=== PATIENT | female | born 1970 | race Caucasian/White ===

== ENCOUNTER 2023-09-30 16:22 | Emergency (ER) | payer MEDICAID ==
[~2023-09-30] VITALS: Ht 165.1 cm; Wt 59.0 kg
[2023-09-30 16:39] VITALS: O2SAT 100
[2023-09-30] MEDS ORDERED: MORPHINE SULFATE 4 MG/ML CPJ (NOT FOR IM USE) IV ONE (16:45)
[2023-09-30 17:30] LABS: BASOPHILS % 0.4 % (0.0-2.0); HEMATOCRIT. 32.2 % (36.0-48.0); HEMOGLOBIN. 9.8 g/dL (12.0-16.0); LYMPHOCYTES % 24.1 % (20.0-50.0); MEAN CORPUSCULAR HEMOGLOBIN 19.8 pg (28.0-32.0); MEAN CORPUSCULAR HGB CONC 30.3 g/dL (31.0-37.0); MEAN CORPUSCULAR VOLUME 65.2 fL (81.0-99.0); MEAN PLATELET VOLUME 8.5 fl (7.4-10.4); MONOCYTES % 9.7 % (2.0-8.0); NEUTROPHILS % 64.8 % (40.0-76.0); PLATELET 176 x1000/uL (130-400); RED BLOOD CELL COUNT 4.94 mill/uL (4.2-5.4); RED CELL DISTRIBUTION WIDTH 19.7 % (11.6-14.6)
[2023-09-30 17:38] LABS: ADD RBC MORPHOLOGY YES; DIFFERENTIAL COMMENT 1
[2023-09-30 17:40] LABS: PROTHROMBIN TIME 10.9 sec (9.6-11.0)
[2023-09-30 17:45] LABS: ALANINE AMINOTRANSFERASE 24 IU/L (10-49); ALBUMIN 4.4 g/dL (3.2-4.8); ASPARTATE AMINOTRANSFERASE 31 IU/L (<34); BILIRUBIN TOTAL 0.6 mg/dL (0.1-1.0); CALCIUM 9.7 mg/dL (8.7-10.4); CARBON DIOXIDE 26 mEq/L (21-32); CHLORIDE 103 mEq/L (98-107); CREATININE 0.4 mg/dL (0.6-1.0); GLUCOSE 69 mg/dL (70-105); PROTEIN TOTAL 7.3 g/dL (6.0-8.3); SODIUM 138 mEq/L (136-145); UREA NITROGEN BLOOD 21 mg/dL (9-23)
[2023-09-30 17:54] LABS: ANISOCYTOSIS 1+; HYPOCHROMASIA 2+; MICROCYTOSIS 3+; PLATELET ESTIMATE NORMAL
[2023-09-30] MEDS ORDERED: IBUP-2029 MT (19:51)
[2023-09-30 20:16] VITALS: BP 132/62; PULSE 74; RESP 17; TEMP 98.1
== END 2023-09-30 20:18 | disposition home or self-care (01) ==
LOC: EDBD 16:22 → ER 16:22
DX: D25.9 Leiomyoma of uterus, unspecified (principal); E05.80 Other thyrotoxicosis without thyrotoxic crisis or storm; Z90.49 Acquired absence of other specified parts of digestive tract
CPT/HCPCS: 80053; 83605; 83690; 85025; 85610; 36415; 71045; 74176; 96374; 99285; J2270; Z7610 ×4

== ENCOUNTER 2023-12-25 10:16 | Emergency (ER) | payer SELFPAY ==
[~2023-12-25] VITALS: Ht 160 cm; Wt 55.0 kg
[~2023-12-25 10:16] MED LIST: IBUP-2029 MT
[2023-12-25] MEDS: ALBUTEROL (0.083%) 2.5MG/3ML NEB HHN STA ×2 (11:04→12:50)
[2023-12-25] MEDS: IPRATROPIUM BROMIDE (0.02%) 0.5MG/2.5ML NEB HHN STA ×2 (11:04→12:50)
[2023-12-25 11:10] VITALS: PULSE 80; RESP 15; O2SAT 98
[2023-12-25 11:21] LABS: BASOPHILS % 0.5 % (0.0-2.0); EOSINOPHILS % 3.5 % (0.0-5.0); HEMATOCRIT. 34.1 % (36.0-48.0); HEMOGLOBIN. 10.7 g/dL (12.0-16.0); LYMPHOCYTES % 36.7 % (20.0-50.0); MEAN CORPUSCULAR HEMOGLOBIN 20.5 pg (28.0-32.0); MEAN CORPUSCULAR HGB CONC 31.4 g/dL (31.0-37.0); MEAN CORPUSCULAR VOLUME 65.5 fL (81.0-99.0); MEAN PLATELET VOLUME 8.4 fl (7.4-10.4); MONOCYTES % 18.2 % (2.0-8.0); NEUTROPHILS % 41.1 % (40.0-76.0); PLATELET 173 x1000/uL (130-400); RED BLOOD CELL COUNT 5.21 mill/uL (4.2-5.4); RED CELL DISTRIBUTION WIDTH 18.9 % (11.6-14.6); WHITE BLOOD COUNT 2.5 x1000/uL (4.5-11.0)
[2023-12-25 11:24] LABS: CHLORIDE 108 mEq/L (98-107); POTASSIUM 3.9 mEq/L (3.5-5.1); SODIUM 137 mEq/L (136-145)
[2023-12-25 11:25] LABS: CALCIUM 8.9 mg/dL (8.7-10.4); CARBON DIOXIDE 21 mEq/L (21-32)
[2023-12-25 11:28] LABS: DIFFERENTIAL COMMENT 1
[2023-12-25 11:30] LABS: ADD RBC MORPHOLOGY YES; CREATININE 0.4 mg/dL (0.6-1.0); GLUCOSE 121 mg/dL (70-105); UREA NITROGEN BLOOD 14 mg/dL (9-23)
[2023-12-25 11:31] LABS: TROPONIN I HIGH SENSITIVITY 7 ng/L (3.0-34)
[2023-12-25 11:32] LABS: ALANINE AMINOTRANSFERASE 26 IU/L (10-49); ALBUMIN 4.3 g/dL (3.2-4.8); ASPARTATE AMINOTRANSFERASE 34 IU/L (<34); BILIRUBIN TOTAL 0.4 mg/dL (0.1-1.0); PROTEIN TOTAL 8.1 g/dL (6.0-8.3)
[2023-12-25] MEDS ORDERED: METHYLPREDNISOLONE SOD SUCC 40MG VIAL IV ONE (11:45)
[2023-12-25 12:03] LABS: ANISOCYTOSIS 2+; MICROCYTOSIS 2+; PLATELET ESTIMATE NORMAL
[2023-12-25] MEDS: METHYLPREDNISOLONE SOD SUCC 125MG/2ML (ACT-O-VIAL) IV NR (12:19)
[2023-12-25 12:50] VITALS: PULSE 91; RESP 2; O2SAT 99
[2023-12-25 12:56] VITALS: TEMP 98.4
[2023-12-25] MEDS ORDERED: AZIT250T MT (13:22)
[2023-12-25] MEDS ORDERED: P20 MT (13:22)
[2023-12-25] MEDS ORDERED: ALBU6.7H15 INH (13:22)
[2023-12-25 14:13] VITALS: BP 134/54; PULSE 81; RESP 19
== END 2023-12-25 14:14 | disposition home or self-care (01) ==
LOC: ER 10:16
DX: B34.9 Viral infection, unspecified (principal); D50.9 Iron deficiency anemia, unspecified; I10 Essential (primary) hypertension; E05.90 Thyrotoxicosis, unspecified without thyrotoxic crisis or storm; Z98.890 Other specified postprocedural states
CPT/HCPCS: 80053; 83880; 83605; 85025; 87040; 84484; 36415; 71045; 94640; 93005; 96374; 99285; J2930; Z7610 ×7; J2920

== ENCOUNTER 2024-07-08 14:00 | Emergency (ER) | payer MEDICAID ==
[~2024-07-08] VITALS: Ht 165.1 cm; Wt 58.0 kg
[~2024-07-08 14:00] MED LIST changes: +ALBU6.7H15 INH; -IBUP-2029 MT; +METH-372 MT
[2024-07-08 14:04] VITALS: O2SAT 100
[2024-07-08 14:19] VITALS: TEMP 98.2; O2SAT 100
[2024-07-08 15:39] VITALS: BP 130/57; PULSE 80; RESP 16
[2024-07-08] MEDS: METOCLOPRAMIDE HCL 10MG TABLET PO ONE (15:39)
[2024-07-08] MEDS: DEXAMETHASONE 10 MG/ML VIAL PO ONE (15:39)
[2024-07-08] MEDS: KETOROLAC 15MG/ML VIAL IM ONE (15:39)
== END 2024-07-08 17:13 | disposition home or self-care (01) ==
LOC: ER 14:06
DX: R51.9 Headache, unspecified (principal); R11.0 Nausea; I10 Essential (primary) hypertension; E03.9 Hypothyroidism, unspecified; Z79.52 Long term (current) use of systemic steroids
CPT/HCPCS: 99283; 96372; J8597; J1100; J1885

== ENCOUNTER 2024-08-11 16:10 | Emergency (ER) | payer MEDICAID ==
[~2024-08-11] VITALS: Ht 162.6 cm; Wt 59.0 kg
[2024-08-11 16:19] VITALS: O2SAT 98
[2024-08-11 16:23] VITALS: TEMP 98.4; O2SAT 99
[2024-08-11 17:29] LABS: CLARITY URINE CLEAR (CLEAR); COLOR URINE YELLOW (YELLOW); GLUCOSE URINE NEGATIVE (NEGATIVE); KETONES URINE NEGATIVE (NEGATIVE); LEUKOCYTE ESTERASE URINE 1+ (NEGATIVE); NITRITE URINE NEGATIVE (NEGATIVE); OCCULT BLOOD URINE 3+ (NEGATIVE); PROTEIN URINE NEGATIVE (NEGATIVE); SPECIFIC GRAVITY URINE 1.015 (1.005-1.030); UROBILINOGEN URINE 0.2 E.U./dL (0.2-1.0)
[2024-08-11 18:01] LABS: BACTERIA URINE 1+; SQUAMOUS EPITHELIAL CELL URINE 2+ /lpf (RARE/1+)
[2024-08-11 18:29] LABS: BASOPHILS % 0.5 % (0.0-2.0); HEMATOCRIT. 29.6 % (36.0-48.0); LYMPHOCYTES % 35.1 % (20.0-50.0); MEAN CORPUSCULAR HEMOGLOBIN 17.6 pg (28.0-32.0); MEAN CORPUSCULAR HGB CONC 30.3 g/dL (31.0-37.0); MEAN PLATELET VOLUME 8.7 fl (7.4-10.4); MONOCYTES % 7.6 % (2.0-8.0); NEUTROPHILS % 56.8 % (40.0-76.0); PLATELET 178 x1000/uL (130-400); RED CELL DISTRIBUTION WIDTH 22.4 % (11.6-14.6); WHITE BLOOD COUNT 3.5 x1000/uL (4.5-11.0)
[2024-08-11 18:31] LABS: ADD RBC MORPHOLOGY YES; DIFFERENTIAL COMMENT 1
[2024-08-11 20:05] LABS: ANISOCYTOSIS 2+; HYPOCHROMASIA 3+; MICROCYTOSIS 3+; PLATELET ESTIMATE NORMAL
[2024-08-11 20:06] LABS: OVALOCYTES 1+
[2024-08-11] MEDS ORDERED: NAPR-681 MT (21:03)
[2024-08-11] MEDS ORDERED: NITR100C MT (21:03)
[2024-08-11 21:11] VITALS: BP 146/42; PULSE 100; RESP 16
[2024-08-11] MEDS: IBUPROFEN 600MG TABLET PO ONE (21:11)
== END 2024-08-11 21:11 | disposition home or self-care (01) ==
LOC: ER 16:10
DX: N39.0 Urinary tract infection, site not specified (principal); D21.9 Benign neoplasm of connective and other soft tissue, unspecified; I10 Essential (primary) hypertension; Z86.39 Personal history of other endocrine, nutritional and metabolic disease
CPT/HCPCS: 36415; 74176; 76830; 76856; 81003; 81025; 85025; 86850; 86900; 99284

== ENCOUNTER 2024-11-21 12:19 | Emergency (ER) | payer MEDICAID ==
[~2024-11-21] VITALS: Ht 165.1 cm; Wt 63.0 kg
[~2024-11-21 12:19] MED LIST changes: +NAPR-681 MT; +NITR100C MT
[2024-11-21 12:21] VITALS: O2SAT 100
[2024-11-21] MEDS ORDERED: PHEN20SP MT (13:11)
[2024-11-21] MEDS ORDERED: BENZ1LOZ73 MT (13:11)
[2024-11-21] MEDS: KETOROLAC 30MG/ML VIAL IM STA (13:30)
[2024-11-21] MEDS: PENICILLIN G BENZATHINE 1,200,000 UNITS/2ML SYR IM STA (13:30)
[2024-11-21 13:55] VITALS: BP 125/65; PULSE 88; RESP 14; TEMP 36.9; O2SAT 100
== END 2024-11-21 13:56 | disposition home or self-care (01) ==
LOC: ER 12:27
DX: E03.9 Hypothyroidism, unspecified (principal); I10 Essential (primary) hypertension; Z79.899 Other long term (current) drug therapy
CPT/HCPCS: 99284; 96372; J0561; J1885